=== PATIENT | female | born 1955 | race Two or more races ===

== ENCOUNTER 2017-01-03 16:09 | Emergency (ER) | payer OTHER ==
[2017-01-03 16:15] VITALS: RESP 18
--- NOTE | 2017-01-03 16:27 | UCPHY ---
H & P Time Seen by Provider: 01/03/17 16:19 Patient Type: New HPI/ROS: CHIEF COMPLAINT: Back pain. HISTORY OF PRESENT ILLNESS: The patient is a 61 year old female presenting with right sided thoracic pain that started while at work today, about 4 -5 hours ago. The patient was standing and twisted to speak to a co-worked and felt a sharp pain in her back. Her pain is localized to the right paravertebral region and radiates into her right arm, which has since subsided and can not recall what part of the arm was bothering her. She denies fall or trauma. The patient was holding something, but it was not relatively heavy while she twisted. She notes associated shortness of breath secondary to pain. This shortness of breath is very minimal. REVIEW OF SYSTEMS: Constitutional: No fever, no chills. Respiratory: No cough, shortness of breath, or wheezing. Musculoskeletal: Back pain as above. Skin: No rashes. Neurological: No headache. Past Medical/Surgical History: Denies. Smoking Status: Never smoked Physical Exam: General: WD, WN, nontoxic, without diaphoresis HEENT: No odor of alcohol Neck: No Torticollis. Trachea is in ML. No rashes. No muscle spasm. No bony tenderness. There is tenderness present to the area of the paravertebral along the upper thoracic spine on the right. from T3-5, no erythema. ROM: Normal Spurling Test: Negative Axial Loading: Worse with head tip to the left though symptoms on the right UE DTR: 1+ triceps right 2+ triceps left. Bilateral symmetrical biceps UE muscle strength: Symmetrical Skin: Intact without rash. Capillary refill intact. Constitutional: Initial Vital Signs Temperature (C) 36.6 C 01/03/17 16:13 Heart Rate 78 01/03/17 16:13 Respiratory Rate 18 01/03/17 16:13 Blood Pressure 127/85 H 01/03/17 16:13 O2 Sat (%) 97 01/03/17 16:13 O2 Delivery Mode Room Air Allergies/Adverse Reactions: Penicillins Allergy (Severe, Verified 02/04/15 08:12) Rash Home Medications: Medication Instructions Recorded Acetaminophen [Arthritis Pain 1,300 mg PO TID PRN #60 tablet.er 01/03/17 Relief] CYCLOBENZAPRINE HCL [Flexeril] 5 mg PO HS PRN #7 tab 01/03/17 Ibuprofen 600 mg PO TID #20 tablet 01/03/17 Lidocaine/Transparent Dressing 1 each TP DAILY #10 kit 01/03/17 [Lidocaine 4% Kit] Medical Decision Making ED Course/Re-evaluation: The patient is a healthy 61-year-old female presenting with right paravertebral pain. The patient developed this pain after twisting to speak with a co-worker. On exam she has some muscle spasms to the region. I do not think imaging is necessary at this time as the patient's pain is in the muscle. I am prescribing a 4% lidocaine patch to help with the patient's pain ad Flexeril to help sleep at night. Differential Diagnosis: Diagnostic considerations include, but are not limited to, the following: Cervical strain, trapezius strain, herniated disc, pulled muscle Departure - Departure Disposition: Home, Routine, Self-Care Clinical Impression: Trapezius muscle strain Qualifiers: Encounter type: initial encounter Laterality: right Qualified Code(s): S46.811A - Strain of other muscles, fascia and tendons at shoulder and upper arm level, right arm, initial encounter Condition: Good Instructions: Muscle Strain (ED) Additional Instructions: Use the 4% lidocaine patch to help with pain. Take Flexeril before bed to help with sleep. The combination of the Motrin and the Tylenol extended-release will help quite a bit for the pain Twice daily: apply heat, followed by massage, followed by ice for 30 minutes total Follow up with worker's Comp sometime next week. Referrals: Work Comp Ref/Restrictions [Outside] - As per Instructions Work Comp Referral [facility] [Outside] - As per Instructions Stand Alone Forms: Work Limited Duty, Work Comp Follow Up, Work Excuse Prescriptions: Acetaminophen [Arthritis Pain Relief] 1,300 mg PO TID PRN #60 tablet.er PRN Reason: Pain, Moderate CYCLOBENZAPRINE HCL [Flexeril] 5 mg PO HS PRN #7 tab PRN Reason: Sleep/Insomnia Ibuprofen 600 mg PO TID #20 tablet Lidocaine/Transparent Dressing [Lidocaine 4% Kit] 1 each TP DAILY #10 kit - PQRS PQRS Measurement: NA Report Scribed for: Tramaine Alvarez Report Scribed by: Camille Jimenez Date of Report: 01/03/17 Time of Report: 16:45
[2017-01-03 17:12] VITALS: BP 125/75; PULSE 74; TEMP 97.7; O2SAT 95
== END 2017-01-03 17:12 | disposition home or self-care (01) ==
LOC: CED 16:09
DX: S46.811A Strain of other muscles, fascia and tendons at shoulder and upper arm level, right arm, initial encounter (principal); X50.1XXA Overexertion from prolonged static or awkward postures, initial encounter; Y99.0 Civilian activity done for income or pay
CPT/HCPCS: G0463-PO